=== PATIENT | female | born 1965 | race Caucasian/White ===

== ENCOUNTER 2022-03-11 07:17 | Emergency (ER) | payer SELFPAY ==
[~2022-03-11] VITALS: Ht 165.1 cm; Wt 92.0 kg
[2022-03-11 07:29] VITALS: BP 132/89
[2022-03-11] MEDS ORDERED: ACETAMINOPHEN WITH CODEINE 300/30MG TABLET PO ONE (08:15)
[2022-03-11] MEDS ORDERED: IBUP-2028 PO (09:09)
[2022-03-11] MEDS ORDERED: T3 PO (09:09)
== END 2022-03-11 09:30 | disposition home or self-care (01) ==
LOC: ER 07:17
DX: M77.31 Calcaneal spur, right foot (principal); M25.571 Pain in right ankle and joints of right foot; E11.9 Type 2 diabetes mellitus without complications
CPT/HCPCS: 73610; 73630; 99284

== ENCOUNTER 2022-04-22 10:06 | Emergency (ER) | payer SELFPAY ==
[~2022-04-22] VITALS: Ht 167.6 cm; Wt 93.0 kg
[~2022-04-22 10:06] MED LIST: IBUP-2028 PO; T3 PO
[2022-04-22 10:29] VITALS: BP 136/81
[2022-04-22] MEDS ORDERED: TETRACAINE 0.5% OPHTH DROPS 4ML LEFTEYE ONE (11:00)
[2022-04-22 14:55] LABS: BASOPHILS % 0.3 % (0.0-2.0); EOSINOPHILS % 1.8 % (0.0-5.0); HEMATOCRIT. 42.6 % (36.0-48.0); HEMOGLOBIN. 14.8 g/dL (12.0-16.0); LYMPHOCYTES % 23.2 % (20.0-50.0); MEAN CORPUSCULAR HEMOGLOBIN 29.8 pg (28.0-32.0); MEAN CORPUSCULAR VOLUME 85.7 fL (81.0-99.0); MEAN PLATELET VOLUME 9.5 fl (7.4-10.4); MONOCYTES % 3.2 % (2.0-8.0); NEUTROPHILS % 71.5 % (40.0-76.0); PLATELET 347 x1000/uL (130-400); RED BLOOD CELL COUNT 4.97 mill/uL (4.2-5.4); RED CELL DISTRIBUTION WIDTH 12.5 % (11.6-14.6)
[2022-04-22 14:57] LABS: CHLORIDE 101 mEq/L (98-107)
== END 2022-04-22 22:00 | disposition left against medical advice (07) ==
LOC: ER 10:06
DX: H54.62 Unqualified visual loss, left eye, normal vision right eye (principal); E11.9 Type 2 diabetes mellitus without complications
CPT/HCPCS: 36415; 80053; 85025; 85651; 99283

== ENCOUNTER 2024-02-28 16:40 | Emergency (ER) | payer OTHER ==
[~2024-02-28] VITALS: Ht 165.1 cm; Wt 100.0 kg
[2024-02-28 16:45] VITALS: BP 110/60; PULSE 104; RESP 22; TEMP 100; O2SAT 99
== END 2024-02-28 21:00 | disposition left against medical advice (07) ==
LOC: ER 16:40
DX: R50.9 Fever, unspecified (principal); Z53.21 Procedure and treatment not carried out due to patient leaving prior to being seen by health care provider